=== PATIENT | female | born 1945 | race Caucasian/White ===

== ENCOUNTER 2017-06-03 10:03 | Emergency (ER) | payer MEDICARE, OTHER ==
[~2017-06-03] VITALS: Ht 160 cm; Wt 49.9 kg
[2017-06-03] MEDS ORDERED: MIRAPEX1 MG PO (10:18)
[2017-06-03] MEDS ORDERED: BACLOFEN10 MG PO (10:18)
[2017-06-03] MEDS ORDERED: AMITRIPTYLINE H50 MG PO (10:19)
[2017-06-03] MEDS ORDERED: LASIX20 MG PO (10:20)
[2017-06-03] MEDS ORDERED: IBUPROFEN600 MG PO (11:35)
[2017-06-03] MEDS ORDERED: NORCO 5-325 TA1 EACH PO (11:35)
== END 2017-06-03 12:06 | disposition home or self-care (01) ==
LOC: ED 10:03
DX: S32.10XA Unspecified fracture of sacrum, initial encounter for closed fracture (principal); I10 Essential (primary) hypertension; F17.200 Nicotine dependence, unspecified, uncomplicated; Z79.899 Other long term (current) drug therapy; W19.XXXA Unspecified fall, initial encounter
CPT/HCPCS: 72131; 80048; 85025; 99284

== ENCOUNTER 2017-07-01 13:31 | Emergency (ER) | payer MEDICARE, OTHER ==
[~2017-07-01] VITALS: Ht 160 cm; Wt 49.9 kg
[~2017-07-01 13:31] MED LIST: AMITRIPTYLINE H50 MG PO; BACLOFEN10 MG PO; IBUPROFEN600 MG PO; LASIX20 MG PO; MIRAPEX1 MG PO; NORCO 5-325 TA1 EACH PO
[2017-07-01] MEDS ORDERED: ALENDRONATE SOD70 MG PO (16:08)
[2017-07-01] MEDS ORDERED: LASIX20 MG PO (16:09)
[2017-07-01] MEDS ORDERED: MONTELUKAST SOD10 MG PO (16:11)
[2017-07-01] MEDS ORDERED: AMITRIPTYLINE H25 MG PO (16:13)
[2017-07-01] MEDS ORDERED: BACLOFEN10 MG PO (16:14)
[2017-07-01] MEDS ORDERED: PROAIR HFA8.5 GM INH (16:15)
[2017-07-01] MEDS ORDERED: NORCO 5-325 TA1 EACH PO (16:16)
[2017-07-01] MEDS ORDERED: MIRAPEX0.25 MG PO (16:16)
[2017-07-01] MEDS ORDERED: FOSAMAX70 MG PO (16:17)
== END 2017-07-01 16:30 | disposition home or self-care (01) ==
LOC: ED 13:31
DX: S32.10XD Unspecified fracture of sacrum, subsequent encounter for fracture with routine healing (principal); J44.9 Chronic obstructive pulmonary disease, unspecified; I10 Essential (primary) hypertension; F32.9 Major depressive disorder, single episode, unspecified; F17.200 Nicotine dependence, unspecified, uncomplicated; Z79.899 Other long term (current) drug therapy; X58.XXXD Exposure to other specified factors, subsequent encounter
CPT/HCPCS: 99283